=== PATIENT | female | born 1970 | race American Indian/Alaskan Native ===

== ENCOUNTER 2018-01-03 13:20 | Emergency (ER) | payer SELFPAY ==
[2018-01-03 13:59] VITALS: BP 117/74
== END 2018-01-04 01:49 | disposition left against medical advice (07) ==
LOC: ED 13:20
DX: M54.6 Pain in thoracic spine (principal); R06.02 Shortness of breath; Z53.21 Procedure and treatment not carried out due to patient leaving prior to being seen by health care provider